=== PATIENT | male | born 2000 | race Caucasian/White ===

== ENCOUNTER 2021-06-24 23:00 | Emergency (ER) | payer MEDICAID ==
[~2021-06-24] VITALS: Ht 162.6 cm; Wt 70.0 kg
[2021-06-24 23:47] VITALS: BP 129/88
[2021-06-25] MEDS ORDERED: FLUORESCEIN SODIUM 1MG/STRIP LEFTEYE ONE (00:30)
[2021-06-25] MEDS ORDERED: TETRACAINE 0.5% OPHTH DROPS 4ML LEFTEYE ONE (00:30)
[2021-06-25] MEDS ORDERED: ERYT1OIN6 RIGHTEYE (01:13)
[2021-06-25] MEDS ORDERED: DEXT15DR5 RIGHTEYE (01:13)
== END 2021-06-25 01:35 | disposition home or self-care (01) ==
LOC: ER 23:00
DX: S05.11XA Contusion of eyeball and orbital tissues, right eye, initial encounter (principal); X02.8XXA Other exposure to controlled fire in building or structure, initial encounter; Y93.G3 Activity, cooking and baking; Y92.89 Other specified places as the place of occurrence of the external cause; Y99.0 Civilian activity done for income or pay
CPT/HCPCS: 99283